=== PATIENT | female | born 1975 | race Two or more races ===

== ENCOUNTER 2016-10-20 17:34 | Emergency (ER) | payer OTHER ==
--- NOTE | ~2016-10-20 | US106 ---
[facility] A Service of [facility] RADIOLOGY TEXT RESULTS PATIENT: KRZYSZTOF PRESSLEY LOCATION: [facility] : 79 UNIT #: [id number] AGE: [address]: Lenard Real DO SEX: F ORDER DR: [id number] [facility] [address] [place], [place] [address] [id number] E MR#: [id number] Acc #: [id number] NAME: KRZYSZTOF PRESSLEY : 1975 SEX: F STUDY DATE/TIME: 10/20/2016 UNIT: [facility] ROOM: STUDY DESCRIPTION: US Preg Uterus Transvaginal Attending Physician: Lenard Real D.O. Ordering Physician: Ed Doctor [id number] [facility] Primary Care Physician: Primary Care Physician No MEDICAL IMAGING REPORT This report is preliminary unless electronic signature is present EXAM Pelvic ultrasound. DATE OF EXAM 10/20/2016, 22:21. INDICATIONS Pelvic pain for 2 days with severe left flank pain as well. Patient is with a beta HCG value of 1595 mabel-international units per mL. Patient has an IUD in place. FINDINGS Transvaginal imaging is performed of the pelvis in multiple planes. No comparison. IUD is present in the endometrial canal. There is thickening of the endometrial stripe measuring up to 2.3 cm. There is a small volume of fluid within the endometrial canal. No clear intrauterine is identified. Both ovaries show perfusion by Doppler. There is complex fluid in the pelvis, particularly to the left of midline. Given the lack of an intrauterine in the abnormality in the left adnexa, ectopic is not excluded on the basis of this exam. IMPRESSION 1. No clear intrauterine is seen, but the beta value is fairly low. IUD is present. There is thickening of the endometrium and there is some endometrial fluid. 2. There is complex fluid and potentially debris in the left adnexa. This could be the result of an ectopic given the lack of clear urine as well as the presence of an IUD. Both ovaries demonstrate perfusion by Doppler. STAT * RESULT [facility] A Service of [facility] RADIOLOGY TEXT RESULTS PATIENT: KRZYSZTOF PRESSLEY [id number] [birth year] UNIT #: [id number] AGE: [address]: Lenard Real DO SEX: F ORDER DR: Dictated by... Abdifatah Sesay Jr., M.D. THIS IS AN ELECTRONICALLY VERIFIED REPORT Abdifatah Sesay Jr., M.D. at 10/21/2016 10:12 PM KARON/tyler TD: 10/20/2016 22:51 JOB #: [id number] MEDICAL IMAGING REPORT Page 1 of 1 COPY
[2016-10-20 20:45] LABS: URINE SOURCE CLEAN CATCH
[2016-10-20 20:50] LABS: URINE APPEARANCE CLEAR; URINE BILIRUBIN NEG (NEG); URINE BLOOD 3+ (NEG); URINE COLOR YELLOW; URINE GLUCOSE NEG (NEG); URINE KETONE TRACE (NEG); URINE LEUKOCYTE ESTERASE TRACE (NEG); URINE NITRATE NEG (NEG); URINE PROTEIN TRACE (NEG)
[2016-10-20 20:52] LABS: URINE BACTERIA AUWI NEG (NEGATIVE); URINE SQUAMOUS EPITHELIAL CELL OCC /[HPF]
[2016-10-20 20:57] LABS: CULTURE INDICATED? NO
[2016-10-20 21:31] LABS: BASOPHIL# 0.1 X10e3 (0-0.3); EOSINOPHIL# 0.3 X10e3 (0-0.7); EOSINOPHIL% 3.7 % (0.0-7.0); HEMATOCRIT 35.9 % (35.0-45.0); HEMOGLOBIN 12.1 gm/dL (12.0-16.0); LYMPHOCYTE# 2.2 X10e3 (1.0-3.5); LYMPHOCYTE% 31.7 % (17.0-45.0); MEAN CELL VOLUME 96.6 FL (83-96); MEAN CORPUSCULAR HEMOGLOBIN 32.6 PG (28-34); MEAN CORPUSCULAR HGB CONC 33.7 g/dL (30-36); MEAN PLATELET VOLUME 8.2 FL (6.5-11.5); MONOCYTE# 0.4 X10e3 (0-1.0); MONOCYTE% 5.2 % (3.0-12.0); NEUTROPHIL% 58.4 % (40-75); PLATELET COUNT 231 X10e3 (140-420); RED BLOOD COUNT 3.72 X10e (3.90-5.30); RED CELL DISTRIBUTION WIDTH 13.5 % (11.0-15.5); WHITE BLOOD COUNT 6.9 X10e3 (4.0-10.5)
[2016-10-20 21:33] LABS: DIFF IND NO
[2016-10-20 21:51] LABS: BILIRUBIN, DIRECT 0.1 mg/dL (0.0-0.2); BILIRUBIN,INDIRECT 1.1 mg/dL (0.0-0.9); BILIRUBIN,TOTAL 1.2 mg/dL (0.2-2.0); CALCIUM SERUM 8.7 mg/dL (8.4-10.2); CREATININE SERUM 0.4 mg/dL (0.6-1.4); GLOM FILT RATE Estimated 131.2 mL/min (>60); POTASSIUM 3.5 mmol/L (3.5-5.1); PROTEIN TOTAL SERUM 7.4 g/dL (6.0-8.3)
== END 2016-10-21 00:18 | disposition hospice, home (50) ==
LOC: CED 17:34
PROVIDERS: Emergency Medicine
DX: O00.90 Unspecified ectopic pregnancy without intrauterine pregnancy (principal)
CPT/HCPCS: 36415; 76817; 80048; 80076; 81003; 83690; 84702; 84703; 85025; 86900; 86901; 96361; 96374; 96375; 99285; J2270; J2405